=== PATIENT | male | born 1945 | race Caucasian/White ===

== ENCOUNTER 2025-05-18 14:11 | Emergency (ER) | payer OTHER, SELFPAY ==
--- NOTE | ~2025-05-18 | CT_ITS ---
CT abdomen pelvis w con INDICATION:rlq abd pain . COMPARISON: None. TECHNIQUE: Axial images of the abdomen and pelvis were obtained following infusion of 100 mL Isovue 300. Dose optimization technique was utilized. FINDINGS: The lung bases are clear. There is a small hiatal hernia. Fatty infiltration of the liver is noted. No intrahepatic mass or ductal dilatation is evident. The gallbladder is unremarkable. The pancreas and spleen are normal in appearance. The adrenal glands are symmetric in size. The kidneys demonstrate symmetric uptake and excretion of contrast. No cystic mass is evident. There is no solid mass. There is no hydronephrosis. Bowel loops are normal in caliber. No bowel obstruction. There is no evidence of acute appendicitis. Stool scattered throughout the colon suggestive of mild constipation. The bladder and rectum are normal. No free intraperitoneal fluid or air is evident. There is no significant retroperitoneal lymphadenopathy. There is moderate atherosclerotic plaques within the infrarenal abdominal aorta. There is complete occlusion of the right iliac artery. The right femoral artery fills distally. There is a femorofemoral graft noted that does not appear to opacify with contrast may be due to phase of the imaging. Additionally left femoral artery does not opacify may be due to phase of imaging. The lower thoracic and lumbar vertebrae are in normal alignment. IMPRESSION: No acute abnormality is noted in the abdomen and pelvis. Small hernia. 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 The right femoral artery fills distally. The femoral or femoral bypass graft does not appear to opacify with contrast, occlusion cannot be excluded. Similarly, the left femoral artery does not opacify with contrast and occlusion cannot be excluded however this may be due to the phase of the imaging. All CT scans at this facility are performed using low dose modulation techniques as appropriate to perform exam including the following: automated exposure control; use of iterative reconstruction technique; adjustment of the mA and/or kV according to patient size (this includes techniques or standardized protocols for targeted exams where dose is matched to indication/reason for exam). Reviewed, dictated and finalized at location [facility] IMPRESSION: No acute abnormality is noted in the abdomen and pelvis. Small hernia. 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 The right femoral artery fills distally. The femoral or femoral bypass graft does not appear to opacify with contrast, occlusion cannot be excluded. Similarly, the left femoral arter y does not opacify with contrast and occlusion cannot be excluded however this may be due to the phase of the imaging. All CT scans at this facility are performed using low dose modulation techniqu es as appropriate to perform exam including the following: automated exposure c ontrol; use of iterative reconstruction technique; adjustment of the mA and/or kV according to patient size (this includes techniques or standardized protocol s for targeted exams where dose is matched to indication/reason for exam).
[2025-05-18 14:16] VITALS: BP 171/84; PULSE 90; RESP 16; TEMP 36.4; O2SAT 100
--- OUTSIDE RECORDS SUMMARY | 2025-05-18 14:17 | XMS_ITS | Clinical Summary ---
Author Organization [facility] Address [address] [place] [address] Care Team Providers Care It Generalist Name Role Phone Jagjit Berger MD Primary Care Provider [phone] Source Comments [facility],non-owned Affiliates and Associated Physician Practices is amultiple site organization consisting of ambulatory clinics and hospital sitesin [place], [place], [place] and [place]. This disclosure is being madepursuant to the Care Everywhere program and may not contain all information available regarding this patient. Last updated 18.[facility] Allergies Active Allergy Reactions Criticality Noted Date Comments Penicillins Anaphylaxis,Skin Reactions,Rash High 09/2015 Medications * Be aware that medications may not be up to date on this document. Alwaysverify current medications with the patient. clopidogrel (PLAVIX) 75 MG tablet Take 75 mg by mouth DAILY. 0 06/12/2017 Active fenofibrate (TRICOR) 145 MG tablet 0 07/11/2017 Active Multiple Vitamins-Iron (TAB-A-JEROMY/IRON ) TABS Take 1 tablet by mouth DAILY. 60 tablet 2 01/10/2017 Active omeprazole (PRILOSEC) 40 MG capsule Take 40 mg by mouth DAILY. 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 17 Localized edema 01/30/2017 Dehiscence of amputation stump 01/30/2017 Disruption of wound 01/30/2017 Unspecified open wound, left lower leg, sequela 05/24/2016 Peripheral vascular disease 04/09/2016 Osteoarthritis 01/21/2016 Presence of other vascular implants and grafts 0 12/13/2015 Immunizations Immunization Administration Dates Next Due PNEUMOCOCCAL PPSV23 04/17/2016 Family History Medical History Relation Name Comments CAD (Coronary Artery Disease) Father Status: Cancer Mother Status: d Relation Name Status Comments Father Mother Social History Tobacco Use Types Packs/Day Years Used Date Smoking Tobacco: Former Cigarettes Q uit: 04/25/2011 Smokeless Tobacco: Never Alcohol Use Standard Drinks/Week Comments Yes 0 (1 standard drink = 0.6 oz pur e alcohol) Sex and Gender Information Value Date Recorded Sex Assigned at Not on file 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 Gender Identity Not on file Sexual Orientation Not on file Last Filed Vital Signs Vital Sign Reading Time Taken Comments Blood Pressure 121/72 10/02/2017 11:51 AM CDT Pulse 92 10/02/2017 11:51 AM CDT Temperature 36.4 C (97.6 F) 10/02/2017 11:51 AM CDT Respiratory Rate 18 02/09/2017 8:31 AM CDT Oxygen Saturation 97% 07/24/2017 11:22 AM UNDERWRITING SPECIALIST Inhaled Oxygen Concentration - - Weight 97.5 kg (215 lb) 10/02/2017 11:51 AM CDT Height 182.9 cm (6') 10/02/2017 11:51 AM CDT Body Mass Index 29.16 10/02/2017 11:51 AM CDT Plan of Treatment Health Maintenance Due Date Last Done Comments HEPATITIS C SCREENING 06/23/1964 DTAP/TDAP/TD VACCINES (1 - Tdap) 1965 ZOSTER VACCINE (1 of 2) 1996 PNEUMOCOCCAL VACCINE 50+ (2 of 2 - PCV) 04/17/2017 04/17/2016 Respiratory Syncytial Virus (RSV) Vaccine Pt: or over 60 yrs (1 - 1-dose 75+ series) 2021 DEPRESSION SCREENING 07/08/2024 COVID-19 VACCINE (1 - 2023-2 5 season) 2025 INFLUENZA VACCINE (#1) 2025 HEPATITIS B VACCINE Aged Out No longe r eligible based on patient's age to complete this topic HIB VACCINE Aged Out No longer eligi ble based on patient's age to complete this topic HPV VACCINE Aged Out No longer eligi ble based on patient's age to complete this topic MENINGOCOCCAL (Group B) VACC INE SHARED DECISION-MAKING Aged Out No longer eligibl e based on patient's age to complete this topic MENINGOCOCCAL GROUPS A/C/Y/W VACCINE Aged Out No longer eligible b ased on patient's age to complete this topic [facility] ANTHEM Care Teams It Generalist Relationship Specialty Start Date End Date Jagjit Berger MD [address] [address] PCP - General 08/04/15
--- OUTSIDE RECORDS SUMMARY | 2025-05-18 14:17 | XMS_ITS | Clinical Summary ---
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
--- OUTSIDE RECORDS SUMMARY | 2025-05-18 14:17 | XMS_ITS | Patient Health Record ---
Author Organization [facility] Address [address] [place], [place] [id number] Care Team Providers Care Elementary Math Tutor Name Role Phone LOBITO PORTER Unavailable [phone] Jagjit Berger Unavailable Unavailable Reason For Referral No Information Social History Social History Additional Details Category Social Info Options Details Migrated Social History Migrated Social History History of tobacco use : , Alcohol intake : , Smoking Status : Former smoker Plan Of Treatment No Information Insurance Providers Payer Name Payer Address Payer Phone Subscriber Number Group Number Insured Name Patient Relationship to Insured Coverage Start Date Coverage End Date [facility] [address] [place], [place] [id number] RUBEN HARPER Self - patient is the insured
--- NOTE | 2025-05-18 14:44 | ED_ITS ---
HPI - Abdominal Pain General Chief Complaint: Urogenital-Male Stated Complaint: [facility] Time Seen by Provider: 05/18/25 14:27 History of Present Illness HPI narrative: Pt presents with abdominal pain for two months on right side and now has suprapubic pain and difficulty urinating. Pt denies fever or vomiting. Pt has hx of DM and neuropathy. Related Data Allergies Allergy/AdvReac Type Severity Reaction Status Date / Time atorvastatin Allergy Unknown Verified 08/10/13 11:20 Penicillins Allergy Unknown Verified 08/10/13 11:20 Review of Systems 2 Review of Systems: All systems reviewed & are unremarkable except as noted in HPI and below PMFSH Family History Family History (Updated 03/04/14 @ 07:13 by DOCTOR UNKNOWN) Father Hypertension Social History Social History Alcohol intake: current Exam 2 Const: General: healthy appearing and no acute distress Nutritional Appearance: well nourished Orientation/consciousness: patient oriented x3 Limitations: no limitations Neck: Neck: normal visual inspection, no lymphadenopathy and no meningeal signs Resp: Effort & Inspection: normal respiratory effort Auscultation: clear to auscultation bilaterally Cardio: Rate: regular rate Rhythm: regular rhythm GI: GI Palp: Yes Soft to palpation and Yes Tenderness to palpation present (GI) (mild suprapubic and rlq tenderness) Auscultation: normal bowel sounds Back/Spine/Pelvis: Back: no CVA tenderness Skin: General skin exam: normal color Rashes: no rashes Wounds: no wounds Neuro: General: patient oriented x3, moves all extremities, no meningeal signs and no focal motor deficits Cranial nerves: Yes Nystagmus not present S peech: normal speech Extrem: General: normal to inspection and no clubbing, cyanosis or edema Psych: Mental Status: mental status grossly normal Affect: normal affect Attitude: cooperative Course Vital Signs Vital signs: Vital Signs Temperature 97.6 F 05/18/25 14:16 Pulse Rate 90 05/18/25 14:16 Respiratory Rate 16 05/18/25 14:16 Blood Pressure 171/84 H 05/18/25 14:16 Pulse Oximetry 100 05/18/25 14:16 Oxygen Delivery Room Air 05/18/25 14:16 Temperature 97.6 F 05/18/25 14:16 Pulse Rate 94 05/18/25 15:00 Respiratory Rate 16 05/18/25 15:00 Blood Pressure 128/82 05/18/25 15:00 Pulse Oximetry 99 05/18/25 15:00 Oxygen Delivery Room Air 05/18/25 14:16 MDM - Abdominal Pain MDM Narrative Medical decision making narrative: will check labs and ua and get T abd/pelvis. labs unremarkable, ct abd pelvis no abdominal pathology, known vascular deficits per patient. home on a few norco. Differential Diagnosis Differential diagnosis: Likely abdominal pain, acute appendicitis, calculus of kidney, constipation, diverticulitis, small bowel obstruction and other (mass, uti) Lab Data Attestation: I reviewed the patient's lab results. 05/18/25 15:21 05/18/25 15:21 Labs: Lab Results 05/18/25 05/18/25 Range/Units 15:21 16:10 WBC 4.7 (4.5-10.0) K/mm3 RBC 4.18 L (4.6-6.20) M/mm3 Hgb 13.8 L (14.0-18.0) g/dL Hct 39.5 L (42.0-52.0) % MCV 94.5 (80-100) fl MCH 33.0 (26-34) pg MCHC 34.9 (32-36) g/dl RDW 12.7 (11.5-14.5) % Plt Count 182 (150-375) k/mm3 MPV 8.8 (7.4-10.4) fl Immature Gran % (Auto) 0.2 (0-0.5) % Neut % (Auto) 58.5 (45.5-73.1) % Lymph % (Auto) 29.0 (18.3-44.2) % [place] % (Auto) 10.2 H (2.6-8.5) % Eos % (Auto) 1.7 (0-4.4) % Baso % (Auto) 0.4 (0.2-1.2) % Lymph # (Auto) 1.37 (0.9-3.2) K/mm3 [place] # (Auto) 0.5 (0.1-0.6) K/mm3 Eos # (Auto) 0.1 (0-0.3) K/mm3 Baso # (Auto) 0.0 (0.0-0.1) K/mm3 Abs Immat Gran (auto) 0.01 (0.00-0.031) K/mm3 Absolute Neuts (auto) 2.8 (1.3-6.7) K/mm3 Absolute Nucleated RBC 0.000 (0.0-0.012) K/mm3 Nucleated RBC % 0.0 (0.0-0.2) % PT 13.2 (11.1-14.7) Seconds INR 1.0 APTT 26.4 (22.3-36.8) Seconds Sodium 130 L (137-145) mmol/L Potassium 3.9 (3.4-5.0) mmol/L Chloride 98 (98-107) mmol/L Carbon Dioxide 24 (22-30) mmol/L Anion Gap 8 (4-12) mmol/L BUN 20 (9-20) mg/dL Creatinine 0.97 (0.7-1.3) mg/dL Estim Creat Clear Calc 61 ml/min Estimated GFR > 60 (59 - ) Glucose 211 H (65-110) mg/dL Lactic Acid 1.1 (0.7-2.0) mmol/L Calcium 9.2 (8.4-10.2) mg/dL Total Bilirubin 0.5 (0.2-1.3) mg/dL AST 27 (17-59) U/L ALT 25 (6-50) U/L Alkaline Phosphatase 60 (38-126) U/L Total Protein 7.5 (6.3-8.2) g/dL Albumin 4.5 (3.5-5.1) g/dL Urine Color Yellow (Yellow) Urine Appearance Clear (Clear) Urine pH 5.5 (5.0-9.0) Ur Specific [place] 1.023 (1.001-1.035) Urine Protein Negative (Negative) mg/dL Urine Glucose (UA) 3+ H (Negative) mg/dL Urine Ketones Negative (Negative) mg/dL Ur Blood (Man) Negative (Negative) Urine Nitrate Negative (Negative) Urine Bilirubin Negative (Negative) Urine Urobilinogen 0.2 (<2.0) mg/dL Leukocyte Esterase Rfl Negative (Negative) RL/UL Imaging Data Radiologist's impression: ITS Impressions Abdomen/Pelvis CT 05/18/25 16:32 IMPRESSION: No acute abnormality is noted in the abdomen and pelvis. Small hernia. 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 The right femoral artery fills distally. The femoral or femoral bypass graft does not appear to opacify with contrast, occlusion cannot be excluded. Similarly, the left femoral artery does not opacify with contrast and occlusion cannot be excluded however this may be due to the phase of the imaging. All CT scans at this facility are performed using low dose modulation techniques as appropriate to perform exam including the following: automated exposure control; use of iterative reconstruction technique; adjustment of the mA and/or kV according to patient size (this includes techniques or standardized protocols for targeted exams where dose is matched to indication/reason for exam). Discharge Plan Discharge Clinical Impression: Abdominal pain Patient Disposition: Home Condition: Stable Instructions: Antibiotic Form, Abdominal Pain (ED) Patient Language: Welsh Prescriptions: New hydrocodone-acetaminophen 5-325 mg tablet 1 tablet PO Q6H PRN (Reason: pain) Qty: 10 0RF Follow-up/Referrals: [facility] [Primary Care Provider, Medical]
[2025-05-18 15:00] VITALS: BP 128/82; PULSE 94; RESP 16; O2SAT 99
--- OUTSIDE RECORDS SUMMARY | 2025-05-18 15:09 | XMS_ITS | Clinical Summary ---
Author Organization [facility] Address [address] [place] [address] Care Team Providers Care Fishing Boat Mate Name Role Phone Jagjit Berger MD Primary Care Provider [phone] Source Comments [facility],non-owned Affiliates and Associated Physician Practices is amultiple site organization consisting of ambulatory clinics and hospital sitesin [place], [place], [place] and [place]. This disclosure is being madepursuant to the Care Everywhere program and may not contain all information available regarding this patient. 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 Gender Identity Not on file Sexual Orientation Not on file Last Filed Vital Signs Vital Sign Reading Time Taken Comments Blood Pressure 121/72 10/02/2017 11:51 AM CDT Pulse 92 10/02/2017 11:51 AM CDT Temperature 36.4 C (97.6 F) 10/02/2017 11:51 AM CDT Respiratory Rate 18 02/09/2017 8:31 AM CDT Oxygen Saturation 97% 07/24/2017 11:22 AM VIDEO PRESENTATION OPERATOR Inhaled Oxygen Concentration - - Weight 97.5 [...] patient's age to complete this topic [facility]M Care Teams Fishing Boat Mate Relationship Specialty Start Date End Date Jagjit Berger MD [address] [address] PCP - General 08/04/15
--- OUTSIDE RECORDS SUMMARY | 2025-05-18 15:09 | XMS_ITS | Clinical Summary ---
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
--- NOTE | 2025-05-18 15:25 | PC.NURSE ---
This RN asked the pt if he was able to provide a urine sample and he said for now he was unable to do so. Urinal was placed at the bedside and pt was advised to push his call light when he was able to go.
[2025-05-18 15:31] LABS: Hematocrit 39.5 % (42.0-52.0); Hemoglobin 13.8 g/dL (14.0-18.0); Immature Granulocyte Percent A 0.2 % (0-0.5); Lymphocytes Absolute Auto 1.37 K/mm3 (0.9-3.2); Mean Corpuscular HGB Conc 34.9 g/dl (32-36); Mean Corpuscular Hemoglobin 33.0 pg (26-34); Mean Corpuscular Volume 94.5 fl (80-100); Nucleated Red Blood Cells Absolute Auto 0.000 K/mm3 (0.0-0.012); Nucleated Red Blood Cells Perc 0.0 % (0.0-0.2); Platelet Count Result 182 k/mm3 (150-375); Red Blood Count 4.18 M/mm3 (4.6-6.20); White Blood Count 4.7 K/mm3 (4.5-10.0)
[2025-05-18] MEDS: KETOROLAC 30 MG/ML VIAL (*BKC) 15 MG IV PUSH (15:33)
[2025-05-18 15:43] LABS: INR 1.0; Prothrombin Time 13.2 Seconds (11.1-14.7)
[2025-05-18 15:44] LABS: Alanine Aminotransferase 25 U/L (6-50); Albumin Level 4.5 g/dL (3.5-5.1); Alkaline Phosphatase 60 U/L (38-126); Anion Gap 8 mmol/L (4-12); Aspartate Amino Transferase 27 U/L (17-59); Bilirubin,Total 0.5 mg/dL (0.2-1.3); Blood Urea Nitrogen 20 mg/dL (9-20); Calcium 9.2 mg/dL (8.4-10.2); Carbon Dioxide 24 mmol/L (22-30); Chloride 98 mmol/L (98-107); Estimated CRCL calculation 61 ml/min; Estimated Glomerular Filt Rate > 60; Glucose 211 mg/dL (65-110); Partial Thromboplastin Time 26.4 Seconds (22.3-36.8); Potassium 3.9 mmol/L (3.4-5.0); Sodium 130 mmol/L (137-145); Total Protein 7.5 g/dL (6.3-8.2)
[2025-05-18 16:16] LABS: Add Urine Microscopic? NO; Appearance Urine Clear (Clear); Glucose Urine UA 3+ mg/dL (Negative); Leukocyte Esterase Ur Negative LEU/UL (Negative); Nitrate Urine Negative (Negative); Specific Grav Ur 1.023 (1.001-1.035)
--- NOTE | 2025-05-18 16:24 | PC.NURSE ---
Pt to CT
[2025-05-18] MEDS: LIDOCAINE 2% GEL UROJET 10 ML PKG MUCOUS MEM (16:38)
[2025-05-18 17:40] VITALS: BP 119/84; PULSE 75; RESP 16; O2SAT 98
== END 2025-05-18 17:37 | disposition home or self-care (01) ==
PROVIDERS: Emergency Provider Emergency Medicine
DX: R10.24 Suprapubic pain (principal)
CPT/HCPCS: 36415; 74177; 80053; 81003; 83605; 85025; 85610; 85730; 96374; 99284; J1885; Q9967